=== PATIENT | female | born 1980 | race Caucasian/White ===

== ENCOUNTER 2017-03-15 17:41 | Emergency (ER) | payer SELFPAY ==
[~2017-03-15 17:41] MED LIST: NIFE10CA PO; NORA0.35 PO; ORTHTAB4 PO
[2017-03-15 17:43] VITALS: BP 134/72; PULSE 92; RESP 18; TEMP 98.8; O2SAT 99
[2017-03-15] MEDS ORDERED: LIDOCAINE 2%/EPINEPHrine 1:100,000 20ML MDV NERV BLOCK ONE (18:15)
[2017-03-15] MEDS ORDERED: TRAM50 PO (18:27)
[2017-03-15] MEDS ORDERED: BACT800T5 PO (18:27)
--- NOTE | 2017-03-15 18:39 | PD ---
HPI . Skin lesion Chief Complaint: Skin Problem Time Seen by Provider: 18:08 Travel History International Travel<30 days: No Contact w/Intl Traveler<30days: No Traveled to known affect area: No History of Present Illness HPI This patient presents with a chief complaint of a skin lesion on her right medial thigh. Onset was approximately 5 days ago. It has been getting progressively worse. She took some amoxicillin that was in the medicine cabinet without relief of her symptoms. She rates her pain 9/10. It is exacerbated by her pants rubbing on her leg. PFSH Past Medical History Blood Disorders: No Cancer: No Cardiovascular Problems: No Diabetes: Yes (gestational) Patient Takes Glucophage: No Diminished Hearing: No Endocrine: Yes Genitourinary: No Hypertension: Yes Immune Disorder: No Musculoskeletal: No Neurologic: No Psychiatric: No Reproductive: No Respiratory: Yes Influenza Vaccination: No ?: Not : 1 Para: 1 Past Surgical History Surgical History: No Previous Surgery Section: Yes Social History Alcohol Use: Yes (OCCASIONAL ) Tobacco Use: Yes (5 BLACK AND MILDS A DAY) Substance Use: No Allergies-Medications (Allergen,Severity, Reaction): Coded Allergies: No Known Allergies (Unverified , 04/13/16) Reported Meds & Prescriptions Reported Meds & Active Scripts Active Ultram (Tramadol HCl) 50 Mg Tab 50 Mg PO Q4H PRN Bactrim DS (Sulfamethoxazole-Trimethoprim) 800-160 Mg Tab 1 Tab PO BID Ortho Tri-Cyclen (Norgestimate-Ethinyl Estradiol) 0.18/0.215/0.25 mg-35 Mcg Tab 1 Tab PO DAILY Lennie-Be-35 (Norethindrone) 0.35 Mg Tab 1 Tab PO DAILY Nifedipine 10 Mg Cap 10 Mg PO TID Review of Systems Except as stated in HPI: all other systems reviewed are Neg General / Constitutional: No: Fever, Chills Skin: Positive Lesions Physical Exam Narrative GENERAL: Awake and alert and in no acute distress. SKIN: Warm and dry. Area of induration on the right medial thigh just distal to the groin. It is pointing. HEAD: Normocephalic/atraumatic. EYES: Pupils are equal. Extraocular movements are intact. NECK: Normal range of motion. CARDIOVASCULAR: Regular rate and rhythm. RESPIRATORY: Nonlabored respirations. MUSCULOSKELETAL: Atraumatic. NEUROLOGICAL: Nonfocal. PSYCHIATRIC: Appropriate mood and affect. Data Data Last Documented VS Vital Signs Date Time Temp Pulse Resp B/P (MAP) Pulse Ox O2 Delivery O2 Flow Rate FiO2 03/15/17 17:43 98.8 92 18 134/72 (92) 99 Room Air Orders Orders Lidocai-Epi 2%-1:100,000 Inj (Xylocaine- (03/15/17 18:15) Ed Discharge Order (03/15/17 18:28) MDM Medical Decision Making Medical Screen Exam Complete: Yes Emergency Medical Condition: Yes Differential Diagnosis My differential diagnosis closed but is not limited to abscess, cyst, lipoma Narrative Course This patient presents with a prior history of an abscess on her right medial thigh which is getting progressively worse. It has been drained. She is being discharged on Bactrim and Ultram and instructions to return here in 2 days for recheck. Procedures Procedure Narrative INCISION AND DRAINAGE OF ABSCESS: The area was prepped and was sterilely draped. A subcutaneous wheal of 1 % Xylocaine plain with a total number 8 mL was used to anesthetize the area properly. A number 11 scalpel was used to make a 1 -cm incision across the area of the abscess. The abscess was drained, complex loculations were broken down. Quarter inch iodoform packing was placed in the wound. Sterile dressing applied. Patient advised to have packing removed in two days. Diagnosis Primary Impression: Abscess Patient Instructions: Abscess (ED), General Instructions Departure Forms: Tests/Procedures Med/Other Pt SpecificInfo: Prescription(s) given Scripts Tramadol (Ultram) 50 Mg Tab 50 MG PO Q4H Y for PAIN, #12 TAB 0 Refills Prov: Amanda Terrazas MD 03/15/17 Sulfamethoxazole-Trimethoprim (Bactrim DS) 800-160 Mg Tab 1 TAB PO BID for Infection, #20 TAB 0 Refills Prov: Amanda Terrazas MD 03/15/17 Disposition: 01 DISCHARGE HOME Condition: Stable Amanda Terrazas MD Mar 15, 2017 18:39
== END 2017-03-15 19:06 | disposition home or self-care (01) ==
LOC: NEPD 17:41
DX: L02.415 Cutaneous abscess of right lower limb (principal)
CPT/HCPCS: 10060; 10061

== ENCOUNTER 2017-03-17 20:58 | Emergency (ER) | payer SELFPAY ==
[~2017-03-17 20:58] MED LIST changes: +BACT800T5 PO; +TRAM50 PO
[2017-03-17 20:59] VITALS: BP 119/70; PULSE 87; RESP 16; TEMP 98.6; O2SAT 97
--- NOTE | 2017-03-17 21:14 | PD ---
HPI Chief Complaint: Wound/Suture/Staple Re-Check Time Seen by Provider: 21:05 Travel History International Travel<30 days: No Contact w/Intl Traveler<30days: No Traveled to known affect area: No History of Present Illness HPI 36-year-old black female presents to the department for a wound recheck and packing removal. She had an incision and drainage done in the last 2-3 days. She states that the pain is much improved. She is taking her antibiotics. She has no complaints at this time other than packing removal. No alleviating or exacerbating activity. Pain is mild. PFSH Past Medical History Blood Disorders: No Cancer: No Cardiovascular Problems: No Diabetes: Yes (gestational) Diminished Hearing: No Endocrine: Yes Genitourinary: No Hypertension: Yes Immune Disorder: No Musculoskeletal: No Neurologic: No Psychiatric: No Reproductive: No Respiratory: Yes ?: Not LMP: 02/27/17 : 1 Para: 1 Past Surgical History Section: Yes Social History Alcohol Use: Yes (OCCASIONAL ) Tobacco Use: Yes (5 BLACK AND MILDS A DAY) Substance Use: No Allergies-Medications (Allergen,Severity, Reaction): Coded Allergies: No Known Allergies (Unverified , 04/13/16) Reported Meds & Prescriptions Reported Meds & Active Scripts Active Ultram (Tramadol HCl) 50 Mg Tab 50 Mg PO Q4H PRN Bactrim DS (Sulfamethoxazole-Trimethoprim) 800-160 Mg Tab 1 Tab PO BID Ortho Tri-Cyclen (Norgestimate-Ethinyl Estradiol) 0.18/0.215/0.25 mg-35 Mcg Tab 1 Tab PO DAILY Lennie-Be-35 (Norethindrone) 0.35 Mg Tab 1 Tab PO DAILY Nifedipine 10 Mg Cap 10 Mg PO TID Review of Systems General / Constitutional: No: Fever Eyes: No: Visual changes HENT: No: Headaches Cardiovascular: No: Chest Pain or Discomfort Respiratory: No: Shortness of Breath Gastrointestinal: No: Abdominal Pain Genitourinary: No: Dysuria Musculoskeletal: No: Pain Skin: No Rash Neurologic: No: Weakness Psychiatric: No: Depression Endocrine: No: Polydipsia Hematologic/Lymphatic: No: Easy Bruising Physical Exam Narrative GENERAL: This is a well-nourished, well-developed patient, in no apparent distress. Patient's examined with the nurse present. SKIN: No rashes, ecchymoses or lesions. Warm and dry. Patient has a healing abscess to the inner right thigh. Packing is removed without incidence. HEAD: Atraumatic. Normocephalic. EYES: PERRL, EOMI, no discharge or injection. No scleral icterus. EARS: Clear NOSE: Nasal turbinates appear normal. THROAT: Mucosa pink and moist. Airway patent. NECK: Trachea midline. supple, moves head freely. LUNGS: Clear to auscultation. CV: Regular in rhythm. ABDOMEN: Soft nontender. EXT: No clubbing cyanosis or edema. Data Data Last Documented VS Vital Signs Date Time Temp Pulse Resp B/P (MAP) Pulse Ox O2 Delivery O2 Flow Rate FiO2 03/17/17 20:59 98.6 87 16 119/70 (86) 97 Room Air Orders Orders Ed Discharge Order (03/17/17 21:11) MDM Medical Decision Making Medical Screen Exam Complete: Yes Emergency Medical Condition: Yes Medical Record Reviewed: Yes Differential Diagnosis MDM: High Differential diagnoses: Abscess, folliculitis, cellulitis, lymphangitis, abrasion, contact dermatitis Narrative Course Packing is removed from the abscess cavity. Dressing applied. This is healing abscess, packing removal Diagnosis Primary Impression: healing abscess Additional Impression: Abscess packing removal Patient Instructions: General Instructions Additional Instructions: Rest. Elevation. keep clean and dry. Warm compresses Daily wound care with soap, water and Neosporin. Continue your antibiotics to complete. Sits past. Follow-up with a primary care doctor in one week. Return to the ER for any problems. Med/Other Pt SpecificInfo: Wound Care Disposition: 01 DISCHARGE HOME Condition: Stable Deshaun Lowery Mar 17, 2017 21:14
== END 2017-03-17 21:41 | disposition home or self-care (01) ==
LOC: NEPD 20:58
DX: Z51.89 Encounter for other specified aftercare (principal); L02.415 Cutaneous abscess of right lower limb; I10 Essential (primary) hypertension; F17.200 Nicotine dependence, unspecified, uncomplicated
CPT/HCPCS: 99281